=== PATIENT | female | born 1940 | race Caucasian/White ===

== ENCOUNTER → 2016-11-06 | Outpatient (CLI) | payer OTHER | LOC: FIMAGING 12:34 | PROVIDERS: ATTEND Urology | DX: N20.0 Calculus of kidney (principal); N13.30 Unspecified hydronephrosis; N28.1 Cyst of kidney, acquired ==

== ENCOUNTER → 2016-11-24 | Outpatient (CLI) | payer OTHER | LOC: FIMAGING 11:06 | PROVIDERS: ATTEND Family Medicine | DX: Z13.820 Encounter for screening for osteoporosis (principal); M85.80 Other specified disorders of bone density and structure, unspecified site; Z78.0 Asymptomatic menopausal state ==

== ENCOUNTER → 2016-11-28 | Outpatient (CLI) | payer OTHER | LOC: FIMAGING 11:02 | DX: Z12.31 Encounter for screening mammogram for malignant neoplasm of breast (principal) | CPT/HCPCS: G0202 ==

== ENCOUNTER → 2016-12-25 | Outpatient (CLI) | payer OTHER | LOC: FIMAGING 10:48 | PROVIDERS: ATTEND Family Medicine | DX: R05 Cough (principal) ==

== ENCOUNTER 2017-10-10 09:10 | Observation (INO) | payer OTHER ==
[~2017-10-10 09:10] MED LIST: ROPIVACAINE 0.2% 80 MG, EPINEPHrine 0.2 MG, KETOROLAC TROMETHAMINE 30 MG in SYRINGE 0 ML IU ONE; TRANEXAMIC ACID 3,000 MG in NS (SYRINGE) 50 ML IRR ONE
--- NOTE | 2017-10-10 09:11 | PDHPUP ---
History & Physical Update H&P update statement: This history and physical update is based on an assessment of the patient which was completed after admission or registration (within 24 hours), but prior to the surgery/procedure. H&P update: H&P reviewed & patient examined, no change in patient's condition since H&P completed
[2017-10-10] MEDS ORDERED: ACETAMINOPHEN 325 MG TAB PO ONE (09:31)
[2017-10-10] MEDS ORDERED: FAMOTIDINE 20 MG TAB PO ONE (09:31)
[2017-10-10] MEDS ORDERED: DEXAMETHASONE 4 MG/ML VIAL IVP ONE (09:31)
[2017-10-10] MEDS ORDERED: ceFAZolin 2 GM/SWFI 2 GM/20 ML SYR IVP ONE (09:31)
[2017-10-10] MEDS ORDERED: LR 1,000 ML IV ONE (09:35)
[2017-10-10] MEDS ORDERED: LIDOCAINE 1% 2 ML INJ ID PRN (09:35)
[2017-10-10] MEDS ORDERED: TRANEXAMIC ACID 3,000 MG/50 ML BAG IRR ONE (09:52)
[2017-10-10] MEDS ORDERED: MIDAZOLAM 2 MG/2 ML VIAL ONE (10:01)
[2017-10-10] MEDS ORDERED: VANCOMYCIN 1 GM VIAL ONE (10:14)
[2017-10-10] MEDS ORDERED: LIDOCAINE 2% 5 ML SDV ONE (10:46)
[2017-10-10] MEDS ORDERED: PROPOFOL 200 MG/20 ML VIAL ONE (10:46)
--- NOTE | 2017-10-10 10:50 | PDANEPAE ---
ANE Past Medical History - Cardiovascular History Hx Hypertension: Yes Hx Arrhythmias: No Hx Chest Pain: No Hx Coronary Artery / Peripheral Vascular Disease: Yes Hx CHF / Valvular Disease: No Hx Palpitations: No - Pulmonary History Hx COPD: No Hx Asthma/Reactive Airway Disease: No Hx Recent Upper Respiratory Infection: No Hx Oxygen in Use at Home: No Hx Sleep Apnea: No Sleep Apnea Screening Result - Last Documented: Negative - Neurologic History Hx Cerebrovascular Accident: No Hx Seizures: No Hx Dementia: No - Endocrine History Hx Diabetes: No - Renal History Hx Renal Disorders: Yes Renal History Comment: INTERMITTENT KIDNEY STONES GETS MONITORED ON REGULAR BASIS. CKD STAGE 3 - Liver History Hx Hepatic Disorders: No - Neurological & Psychiatric Hx Hx Neurological and Psychiatric Disorders: Yes Neurological / Psychiatric History Comment: ANXIETY - Cancer History Hx Cancer: No - Congenital Disorder History Hx Congenital Disorders: Yes Congenital History Comment: RENAL CYSTS - GI History Hx Gastrointestinal Disorders: Yes Gastrointestinal History Comment: GERD. PEPTIC ULCER. H PYLORI TREATED. COLONOSCOPY/EGD. POLYP REMVL - Other Health History Other Health History: INSOMNIA. INTERMITTENT AUTO IMMUNE RASH UNDER BREASTS. INTERMITTENT VAGINITIS. OSTEOPENIA. OSTEOARTHRITIS. PERIPHERAL VASCULAR DX. SKIN DX LICHEN SCLEROSUS WHITE PATCHES - Chronic Pain History Chronic Pain: Yes (LT KNEE) - Surgical History Prior Surgeries: CRANIOTOMY FOR MENIGIOMA 1991. LT KNEE SCOPE. LT BREAST BX. CYSTO ANE Review of Systems Review of Systems: - Exercise capacity METS (RN): 4 METS ANE Patient History - Allergies Allergies/Adverse Reactions: carbamazepine [From Tegretol] Allergy (Mild, Verified 11/29/14 11:06) Rash phenytoin sodium [From Dilantin] Allergy (Mild, Verified 11/29/14 11:06) Rash phenytoin sodium extended [From Dilantin] Allergy (Mild, Verified 11/29/14 11:06 ) Rash - Home Medications Home Medications: Atorvastatin Calcium [Lipitor 20 mg (*)] 20 mg PO DAILY 11/29/14 [Last Taken ] Hydrochlorothiazide [HCTZ (RX)] 12.5 mg PO DAILY 11/29/14 [Last Taken 10/09/17] Lisinopril [Zestril] 10 mg PO DAILY 11/29/14 [Last Taken 10/10/17 06:00] ALPRAZolam [Alprazolam] 0.125 mg PO HS PRN 09/05/17 [Last Taken 10/06/17] Aspirin EC [Aspirin EC 81 mg (*)] 81 mg PO HS 09/05/17 [Last Taken 1 Week Ago ~ 10/03/17] Bacitracin/Polymyxin B Sulfate [Bacitracin-Polymyxin Eye Oint] 3.5 gm EACHEYE DAILY PRN 09/05/17 [Last Taken 2 Months Ago ~08/09/17] Cholecalciferol Vit D3 [Vitamin D3 2000 units tab (OTC)] 2,000 units PO DAILY [Last Taken 09/26/17] Herbals/Supplements -Info Only 1 ea PO DAILY 09/05/17 [Last Taken 09/26/17] [place]-3 Fatty Acids [Fish Oil 1000 mg (*)] 1,000 mg PO DAILY 09/05/17 [Last Taken 09/26/17] Ranitidine HCl [Zantac] 150 - 300 mg PO DAILY PRN 09/05/17 [Last Taken 10/09/17] traMADol [Ultram 50 mg (*)] 50 mg PO Q6 PRN 09/05/17 [Last Taken Unknown] - NPO status NPO Since - Liquids (Date): 10/10/17 NPO Since - Liquids (Time): 03:00 NPO Since - Solids (Date): 10/09/17 NPO Since - Solids (Time): 19:00 - Smoking Hx Smoking Status: Unknown if ever smoked ANE Labs/Vital Signs - Vital Signs Blood Pressure: 130/76 Heart Rate: 88 Respiratory Rate: 16 O2 Sat (%): 93 Height: 151.77 cm Weight: 53.977 kg ANE Physical Exam - Airway Neck exam: decreased ROM, short neck Mallampati Score: Class 2 Mouth exam: normal dental/mouth exam, small mouth opening - Pulmonary Pulmonary: no respiratory distress, no rales or rhonchi, clear to auscultation - Cardiovascular Cardiovascular: regular rate and rhythym, no murmur, rub, or gallop - ASA Status ASA Status: III ANE Anesthesia Plan Anesthesia Plan: spinal Regional Anesthesia: adductor canal FNB
[2017-10-10] MEDS ORDERED: LR 500 ML IV PRN ×2 (11:58→13:05)
[2017-10-10] MEDS ORDERED: fentaNYL 100 MCG/2 ML INJ IVP PRN ×2 (11:58→13:05)
[2017-10-10] MEDS ORDERED: DEXAMETHASONE 4 MG/ML VIAL IVP PRN ×2 (11:58→13:05)
[2017-10-10] MEDS ORDERED: NALOXONE HCL 0.4 MG/ML INJ IVP PRN ×2 (11:58→13:05)
[2017-10-10] MEDS ORDERED: ONDANSETRON 4 MG/2 ML VIAL IVP PRN ×3 (11:58→13:05)
[2017-10-10] MEDS ORDERED: ALBUTEROL 3 ML DEYVIAL IH PRN ×2 (11:58→13:05)
[2017-10-10] MEDS ORDERED: LACTULOSE 20 GM/30 ML UDCUP PO PRN (12:20)
[2017-10-10] MEDS ORDERED: PROMETHAZINE HCL 25 MG SUPPR PR PRN (12:20)
[2017-10-10] MEDS ORDERED: BISACODYL 10 MG SUPP PR PRN (12:20)
[2017-10-10] MEDS ORDERED: ONDANSETRON DISINTEGRATING 4 MG TAB PO PRN (12:20)
[2017-10-10] MEDS ORDERED: TEMAZEPAM 15 MG CAP PO PRN (12:20)
[2017-10-10] MEDS ORDERED: PROMETHAZINE HCL 25 MG/ML INJ IVP PRN (12:20)
[2017-10-10] MEDS ORDERED: DIPHENOXYLATE/ATROPINE LOMOTIL 1 TAB PO PRN (12:20)
[2017-10-10] MEDS ORDERED: MAGNESIUM HYDROXIDE 30 ML UDCUP PO PRN (12:20)
[2017-10-10] MEDS ORDERED: METOCLOPRAMIDE 10 MG/2 ML VIAL IVP PRN (12:20)
[2017-10-10] MEDS ORDERED: diphenhydrAMINE 25 MG CAP PO PRN (12:20)
[2017-10-10] MEDS ORDERED: POLYETHYLENE GLYCOL 3350 17 GM PKT PO PRN (12:20)
--- NOTE | 2017-10-10 12:20 | POSTOPPROG ---
Post Op Note Date of Operation: 10/10/17 Surgeon: Alisa Lazo Tool Analyst: saud lazo Anesthesiologist: dr. beltran Anesthesia: Spinal, Other (Specify) (adductor canal block) Pre-op Diagnosis: left knee OA Post-op Diagnosis: same Indication: left knee pain due to OA that failed conservative measures Procedure: L TKA Findings: severe knee OA and loose bodies Inf/Abcess present in the surg proc area at time of surgery?: No EBL: 50-100
[2017-10-10] MEDS ORDERED: ALPRAZolam 0.5 MG TAB PO PRN (12:22)
[2017-10-10] MEDS ORDERED: BUPIVACAINE 0.25% 30 ML SDV ONE (12:23)
[2017-10-10] MEDS ORDERED: LR 1,000 ML IV SCH (12:30)
--- NOTE | 2017-10-10 13:05 | POSTANESTH ---
Post Anesthetic Evaluation Cardiovascular Status: Normal, Stable Respiratory Status: Normal, Stable Level of Consciousness/Mental Status: Can Participate in Eval Pain Control: Adequate, Prn Tx Ordered Nausea/Vomiting Control: Adequate, Prn Tx Ordered Complications Possibly Related to Anesthesia: None Noted
[2017-10-10] MEDS ORDERED: ceFAZolin 2 GM/DEXTROSE 100 ML IV SCH (14:00)
[2017-10-10] MEDS: ACETAMINOPHEN 325 MG TAB PO SCH (17:08)
[2017-10-10] MEDS: CYCLOBENZAPRINE 10 MG TAB PO PRN (17:10)
[2017-10-10] MEDS: ceFAZolin 2 GM/SWFI 2 GM/20 ML SYR IVP SCH (20:00)
[2017-10-10] MEDS: SENNOSIDES/DOCUSATE SODIUM TAB PO SCH (23:11)
[2017-10-10] MEDS: ASPIRIN 81 MG CHEWABLE TAB PO SCH (23:11)
[2017-10-10] MEDS: FAMOTIDINE 20 MG TAB PO SCH (23:11)
[2017-10-10] MEDS: ALPRAZolam 0.25 MG TAB PO PRN (23:17)
[2017-10-11] MEDS: CYCLOBENZAPRINE 10 MG TAB PO PRN (01:21)
[2017-10-11] MEDS: ACETAMINOPHEN 325 MG TAB PO SCH ×3 (01:21→11:06)
[2017-10-11] MEDS: ALPRAZolam 0.25 MG TAB PO PRN (01:22)
[2017-10-11] MEDS: ceFAZolin 2 GM/SWFI 2 GM/20 ML SYR IVP SCH (03:10)
--- NOTE | 2017-10-11 06:38 | GOP ---
[f rep st] OPERATIVE REPORT DATE OF OPERATION: 10/10/2017 SURGEON: Bryan Patel MD BALING PRESS OPERATOR: SHAWN Brewster ANESTHESIA: Spinal. PREOPERATIVE DIAGNOSIS: Left knee osteoarthritis. POSTOPERATIVE DIAGNOSIS: Left knee osteoarthritis. PROCEDURE PERFORMED: Left total knee arthroplasty. FINDINGS: ESTIMATED BLOOD LOSS: 3 cc. INDICATIONS: This is a 76-year-old female with severe and progressive pain and deformity of the left knee unresponsive to conservative care. Risks and benefits of the surgical intervention were explained in detail. DESCRIPTION OF PROCEDURE: The patient was brought to the operative room and placed on the table in the supine position. Spinal anesthesia was induced without difficulty. A pneumatic tourniquet was applied about the left proximal thigh, and the leg was prepped and draped in a sterile fashion. The leg pepe was applied. After exsanguination by elevation the tourniquet was inflated to 250 mmHg. Incision was made anterior medial from the tibial tuberosity to a point 3 cm proximal to the superior pole of the patella. Medial parapatellar arthrotomy was carried out from the superior pole of the patella and posteriorly in line with the fibers of the type II VMO. The medial collateral ligament was elevated and the infrapatellar fat pad was resected. The patella was everted and the articular surface was excised. A 29 mm patellar button was placed. The distal femoral guide hole was drilled and the 60 -degree alignment venita was placed. A 9 mm distal femoral cut was made without difficulty. Attention was turned to the tibia and a standard 6 mm cut based on the medial tibial condyle was performed. The tibial articular surface was excised without difficulty. Attention was turned back to the femur and a size 2 femoral cutting block was positioned. Anterior, posterior, and chamfer cuts were made, followed by the intercondylar box cut. The knee was extended and the remnants of the medial and lateral meniscus were excised. The posterior capsule was injected with ropivacaine, epinephrine and Toradol. A size 2 tibial tray was positioned. Trial reduction was then carried out. There was excellent range of motion, alignment, and stability using the 5 mm polyethylene. All trials were then removed. The joint was thoroughly irrigated and carefully dried. Two packages of cement and 2 grams of vancomycin were mixed in the vacuum mixer and placed on the fixation surfaces of all surfaces of the components. The components were implanted and all excess cement was thoroughly removed. The permanent 5 mm polyethylene was placed without difficulty. The tourniquet was deflated and all bleeders were coagulated. The wound was thoroughly irrigated and closed using interrupted sutures of 2-0 Vicryl for the joint capsule. The subcu was closed with 3-0 Vicryl and the skin with 4-0 Monocryl. Dermabond and Steri-Strips were applied followed by a compressive dressing. The patient was then moved from the operating room to the recovery room in good condition, having tolerated the procedure well. PATHOLOGY: Severe lateral patellofemoral osteoarthritis, with multiple loose bodies. /[id number]/MODL MTDD
[2017-10-11 07:19] VITALS: PULSE 78; TEMP 97.4
[2017-10-11] MEDS: ASPIRIN 81 MG CHEWABLE TAB PO SCH (08:01)
[2017-10-11] MEDS: SENNOSIDES/DOCUSATE SODIUM TAB PO SCH (08:02)
[2017-10-11] MEDS: FAMOTIDINE 20 MG TAB PO SCH (08:02)
[2017-10-11] MEDS: oxyCODONE IR 5 MG TAB PO PRN ×2 (08:03→11:06)
[2017-10-11] MEDS ORDERED: LISINOPRIL 10 MG TAB PO SCH (09:00)
[2017-10-11] MEDS ORDERED: ATORVASTATIN CALCIUM 20 MG TAB PO SCH (09:00)
[2017-10-11] MEDS ORDERED: HYDROCHLOROTHIAZIDE 25 MG TAB PO SCH (09:00)
--- NOTE | 2017-10-11 09:45 | SOAPPROG ---
SOAP Progress Note Assessment/Plan: Assessment: patient is doing well POD 1 s/p L TKA pain is well controlled DVT ppx: recommend aspirin 81 mg BID Anemia: level expected initially postop d/c planning: d/c to home today Plan: 10/11/17 15:25 Subjective: [place] is doing well today, denies SOB, chest pain and N/V. Objective: Vital Signs Temp Pulse Resp BP Pulse Ox 36.3 C 78 16 112/59 L 98 10/11/17 07:16 10/11/17 07:16 10/11/17 07:16 10/11/17 07:16 10/11/17 07:16 Laboratory Results 10/11/17 04:19 10/11/17 04:19 10/10/17 10/11/17 10/12/17 05:59 05:59 05:59 Intake Total 2956 Output Total 1370 200 Balance 1586 -200 LLE; incision dressing is clean and dry, NVI, +pf/df ICD10 Worksheet Patient Problems: Problems Problem Status Onset Primary localized osteoarthritis of left knee Acute
[2017-10-11 12:30] VITALS: BP 132/54; RESP 14; O2SAT 95
[2017-10-12] MEDS ORDERED: FAMOTIDINE 20 MG TAB PO SCH (09:00)
== END 2017-10-11 14:14 | disposition home or self-care (01) ==
LOC: INTOOBSV 09:10 → F3E 09:10 → F3N 13:30
PROVIDERS: ADMIT Orthopaedic Surgery; ATTEND Orthopaedic Surgery
PROC: 0SRD0JZ Replacement of Left Knee Joint with Synthetic Substitute, Open Approach (ICD-10-PCS; principal; 2017-10-10 11:15)
DX: M17.12 Unilateral primary osteoarthritis, left knee (principal); N18.3 Chronic kidney disease, stage 3 (moderate); F41.9 Anxiety disorder, unspecified; Z86.011 Personal history of benign neoplasm of the brain; I25.10 Atherosclerotic heart disease of native coronary artery without angina pectoris; E78.5 Hyperlipidemia, unspecified; G47.00 Insomnia, unspecified; K27.9 Peptic ulcer, site unspecified, unspecified as acute or chronic, without hemorrhage or perforation; Z87.442 Personal history of urinary calculi
CPT/HCPCS: 27447; 73560; 88311; 97116; 97161; 97165; 97530; 97535; C1713; C1776; G8978; G8979; G8987; G8988; G8989; J0171; J0690; J1100; J1885; J2250; J2704; J2795; J3370

== ENCOUNTER → 2017-12-13 | Outpatient (CLI) | payer OTHER | LOC: FIMAGING 14:09 | PROVIDERS: ATTEND Urology | DX: R93.421 Abnormal radiologic findings on diagnostic imaging of right kidney (principal); N28.1 Cyst of kidney, acquired ==

== ENCOUNTER → 2018-05-17 | Outpatient (CLI) | payer OTHER | LOC: FIMAGING 11:26 | PROVIDERS: ATTEND Family Medicine | DX: Z12.31 Encounter for screening mammogram for malignant neoplasm of breast (principal) ==

== ENCOUNTER → 2018-11-08 | Outpatient (CLI) | payer OTHER ==
[~2018-11-08] MED LIST changes: +GADOBUTROL 10 ML VIAL IVP ONE; -ROPIVACAINE 0.2% 80 MG, EPINEPHrine 0.2 MG, KETOROLAC TROMETHAMINE 30 MG in SYRINGE 0 ML IU ONE; -TRANEXAMIC ACID 3,000 MG in NS (SYRINGE) 50 ML IRR ONE
== END ==
LOC: FIMAGING 10:37
PROVIDERS: ATTEND Family Medicine
DX: G93.89 Other specified disorders of brain (principal); G31.9 Degenerative disease of nervous system, unspecified; Z86.011 Personal history of benign neoplasm of the brain
CPT/HCPCS: 70553; A9585; 82565-PO